=== PATIENT | female | born 1955 | race African-American/Black ===

== ENCOUNTER 2024-02-02 13:40 | Emergency (ER) | payer MEDICARE ==
[~2024-02-02] VITALS: Ht 167.6 cm; Wt 104.0 kg
[2024-02-02 13:51] VITALS: TEMP 98.3; O2SAT 96
[2024-02-02] MEDS ORDERED: IBUP-2029 MT (14:17)
[2024-02-02] MEDS ORDERED: LIDO1ADH7 TP (14:17)
[2024-02-02 14:56] VITALS: BP 190/100; PULSE 69; RESP 16
== END 2024-02-02 14:58 | disposition home or self-care (01) ==
LOC: ER 13:57
DX: M54.2 Cervicalgia (principal); M25.511 Pain in right shoulder; V49.9XXA Car occupant (driver) (passenger) injured in unspecified traffic accident, initial encounter; Y93.89 Activity, other specified; Y92.89 Other specified places as the place of occurrence of the external cause; Y99.8 Other external cause status
CPT/HCPCS: 99282